=== PATIENT | female | born 1995 | race Caucasian/White ===

== ENCOUNTER 2019-06-21 21:36 | Emergency (ER) | payer MEDICAID ==
[2019-06-21] MEDS ORDERED: NORMAL SALINE 1000 ML 1,000 ML IV ONE (22:20)
--- NOTE | 2019-06-21 22:22 | ER Document Report ---
ED Medical Screen (RME) - General Chief Complaint: Fall Stated Complaint: FALL/HEAD IN JURY Time Seen by Provider: 06/21/19 22:15 Notes: Patient is a 24-year-old female who is currently 23 weeks who presents emergency department with a chief complaint of fall. Patient reports she was resting on the couch when she attempted to get up and felt lightheaded. Patient reports she did fall striking the left side of the forehead on a kitchen table. Patient states she did not lose consciousness. Patient reports prior to the fall she was feeling her baby move very frequently but has not felt the baby move much. She reports that labor and delivery early briefly did obtain heart tones but sent her to the emergency department for further evaluation. Patient reports having a headache and feeling like she has not had enough water to drink. Patient reports she could feel dehydrated. Patient did get Tylenol in the ambulance. Patient denies abdominal pain, vaginal bleeding or discharge. Patient does report urinary frequency but states this could be due to the . TRAVEL OUTSIDE OF THE [place] IN LAST 30 DAYS: No - Related Data Home Medications: Vitamins Past Medical History - Social History Frequency of alcohol use: None Drug Abuse: None Physical Exam - Vital signs Vitals: Temp Pulse Resp BP Pulse Ox 98.1 F 85 17 117/62 98 06/21/19 22:07 06/21/19 22:07 06/21/19 22:07 06/21/19 22:07 06/21/19 22:07 - HEENT Head: Normocephalic, Other - Very light petechiae noted to the top left head. No laceration, mild edema. Eyes: Normal Conjunctiva: Normal Cornea: Normal Eyelashes: Normal Pupils: PERRL Course - Re-evaluation Re-evalutation: 06/21/19 22:22 I have greeted and performed a rapid initial assessment of this patient. A comprehensive ED assessment and evaluation of the patient, analysis of test results and completion of the medical decision making process will be conducted by additional ED providers. - Vital Signs Vital signs: Temp Pulse Resp BP Pulse Ox 98.1 F 85 17 117/62 98 06/21/19 22:07 06/21/19 22:07 06/21/19 22:07 06/21/19 22:07 06/21/19 22:07
[2019-06-21 23:25] LABS: ABSOLUTE EOSINOPHILS # (AUTO) 0.1 10^3/uL (0.0-0.6); ABSOLUTE LYMPHOCYTES (AUTO) 2.7 10^3/uL (0.5-4.7); ABSOLUTE MONOCYTES (AUTO) 0.5 10^3/uL (0.1-1.4); ABSOLUTE NEUT (AUTO) 6.8 10^3/uL (1.7-8.2); BASOPHILS % (AUTO) 0.4 % (0-2); EOSINOPHILS % (AUTO) 0.9 % (0-6); HEMATOCRIT 37.5 % (36.0-47.0); HEMOGLOBIN 13.6 g/dL (12.0-15.5); LYMPHOCYTES % (AUTO) 26.4 % (13-45); MEAN CORPUSCULAR HEMOGLOBIN 31.6 pg (27.0-33.4); MEAN CORPUSCULAR HGB CONC 36.2 g/dL (32.0-36.0); MEAN CORPUSCULAR VOLUME 87 fl (80-97); MONOCYTES % (AUTO) 4.9 % (3-13); PLATELET COUNT 253 10^3/uL (150-450); RED CELL DISTRIBUTION WIDTH 13.8 % (11.5-14.0); SEGMENTED NEUTROPHILS % (AUTO) 67.4 % (42-78); TOTAL CELLS COUNTED % (AUTO) 100 %; WHITE BLOOD COUNT 10.1 10^3/uL (4.0-10.5)
[2019-06-21 23:36] LABS: APPEARANCE,URINE CLOUDY; BILIRUBIN,URINE NEGATIVE (NEGATIVE); CALCIUM OXALATE CRYSTALS,URINE TOO NUMEROUS TO CNT /HPF; COLOR,URINE YELLOW; GLUCOSE, URINE NEGATIVE (NEGATIVE); KETONES,URINE NEGATIVE (NEGATIVE); LEUKOCYTE ESTERASE,URINE SMALL (NEGATIVE); NITRITE,URINE NEGATIVE (NEGATIVE); PROTEIN,URINE NEGATIVE (NEGATIVE); URINE SPECIFIC GRAVITY 1.021
[2019-06-21 23:41] LABS: ALBUMIN 3.7 g/dL (3.5-5.0); ALKALINE PHOSPHATASE 51 U/L (38-126); ANION GAP 9 (5-19); ASPARTATE AMINO TRANSFERASE 23 U/L (14-36); BILIRUBIN,DIRECT 0.3 mg/dL (0.0-0.4); BILIRUBIN,TOTAL 0.5 mg/dL (0.2-1.3); BLOOD UREA NITROGEN 7 mg/dL (7-20); CALCIUM 9.3 mg/dL (8.4-10.2); CARBON DIOXIDE 25 mmol/L (22-30); CHLORIDE 102 mmol/L (98-107); GLUCOSE 91 mg/dL (75-110); POTASSIUM 3.4 mmol/L (3.6-5.0); TOTAL PROTEIN 6.8 g/dL (6.3-8.2)
--- NOTE | 2019-06-22 01:46 | ER Document Report ---
ED General - General Chief Complaint: Fall Stated Complaint: FALL/HEAD IN JURY Time Seen by Provider: 06/21/19 22:15 Mode of Arrival: Medic Information source: Patient Notes: Patient is a 24-year-old female presenting to the emergency department chief complaint of accidental fall while . Patient states that about 7 PM this evening she stood up became lightheaded and fell hitting her head on a table. Patient denies actual loss of consciousness. Patient states that she has experienced decreased movement since the incident. Patient states she is approximately 23 weeks gestation 2 para 1 A0. At the time of evaluation patient is alert and oriented x3 in no acute distress. TRAVEL OUTSIDE OF THE [place] IN LAST 30 DAYS: No - HPI Onset: This evening Onset/Duration: Sudden, Better Quality of pain: Achy Severity: Moderate Pain Level: 2 Associated symptoms: None Exacerbated by: Denies Relieved by: Denies Similar symptoms previously: No Recently seen / treated by doctor: No - Related Data Allergies/Adverse Reactions: No Known Allergies Allergy (Unverified 06/21/19 22:21) Home Medications: Vitamins Past Medical History - General Information source: Patient - Social History Smoking Status: Never Smoker Frequency of alcohol use: None Drug Abuse: None Lives with: Spouse/Significant other Family History: Reviewed & Not Pertinent Patient has suicidal ideation: No Patient has homicidal ideation: No - Medical History Medical History: Negative Past Surgical History: Reports: Hx Oral Surgery - wisdom teeth Review of Systems - Review of Systems Notes: REVIEW OF SYSTEMS: CONSTITUTIONAL : Denies fever, chills, or sweats. Denies recent illness. EENT: Denies eye, ear, throat, or mouth pain or symptoms. Denies nasal or sinus congestion. CARDIOVASCULAR: Denies chest pain. RESPIRATORY: Denies cough, cold, or chest congestion. Denies shortness of breath, difficulty breathing, or wheezing. GASTROINTESTINAL: Denies abdominal pain. Denies nausea, vomiting, or diarrhea. Denies constipation. GENITOURINARY: Denies difficulty urinating, painful urination, burning, frequency, or blood in urine. OB: Decreased movement MUSCULOSKELETAL: Denies neck or back pain or joint pain or swelling. SKIN: Denies rash or skin lesions. HEMATOLOGIC : Denies easy bruising or bleeding. NEUROLOGICAL: Denies altered mental status or loss of consciousness. Denies headache. Denies weakness or paralysis or loss of use of either side. Denies problems with gait or speech. Denies sensory or motor loss. 10 Systems are negative unless otherwise specified above Physical Exam - Vital signs Vitals: Temp Pulse Resp BP Pulse Ox 98.1 F 85 17 117/62 98 06/21/19 22:07 06/21/19 22:07 06/21/19 22:07 06/21/19 22:07 06/21/19 22:07 Interpretation: Normal - General General appearance: Appears well, Alert In distress: None - HEENT Head: Normocephalic, Atraumatic Eyes: Normal Pupils: PERRL - Respiratory Respiratory status: No respiratory distress Chest status: Nontender Breath sounds: Normal Chest palpation: Normal - Cardiovascular Rhythm: Regular Heart sounds: Normal auscultation Murmur: No - Abdominal Inspection: Gravid female Bowel sounds: Normal Tenderness: Tender - Back Back: Normal, Nontender - Extremities General upper extremity: Normal inspection, Nontender, Normal color, Normal ROM, Normal temperature General lower extremity: Normal inspection, Nontender, Normal color, Normal ROM, Normal temperature, Normal weight bearing. No: Bipin's sign - Neurological Notes: At time of evaluation the patient is alert and oriented x3, Glascow coma scale of 15, cranial nerves II through XII are grossly intact, sensations intact, motor is intact, there are no signs of nystagmus, there is no pronator drift, there is no facial asymmetry, tongue protrusion is midline, reflexes are equal and bilateral, patient ambulates without ataxia, patient answers all questions appropriately follows commands appropriately. - Skin Skin Temperature: Warm Skin Moisture: Dry Skin Color: Normal Skin Turgor: Elastic Course - Re-evaluation Re-evalutation: 06/22/19 01:46 Labs have been reviewed I spoke with [facility] on-call they are requesting ultrasound of the abdomen to ensure no pathologic abnormalities. 06/22/19 02:20 Patient to US 06/22/19 02:42 Patient has returned from ultrasound. Patient continues to have no complaints. Waiting on official ultrasound read by radiologist. 06/22/19 02:54 Ultrasound determined no significant findings. Single living IUP of 23 weeks 5 days, heart rate of 145. I have discussed the laboratory and radiologic results with patient and family member they are agreeable with discharge home patient is to follow-up this coming Monday for further discussion with [facility] as needed or return to the emergency department for worsening symptoms. Patient is stable at time of disc harge. - Vital Signs Vital signs: Temp Pulse Resp BP Pulse Ox 98.1 F 85 17 117/62 98 06/21/19 22:07 06/21/19 22:07 06/21/19 22:07 06/21/19 22:07 06/21/19 22:07 - Laboratory Result Diagrams: 06/21/19 23:08 06/21/19 23:08 Laboratory results interpreted by me: 06/21/19 06/21/19 06/21/19 23:08 23:08 23:08 MCHC 36.2 H Sodium 136.2 L Potassium 3.4 L Creatinine 0.47 L Urine Urobilinogen 2.0 H Ur Leukocyte Esterase SMALL H Discharge - Discharge Clinical Impression: Accidental fall, Abdominal contusion Condition: Stable Disposition: HOME, SELF-CARE Additional Instructions: Recommend following up with your [facility] physician this coming week. Return to the emergency department for worsening symptoms to include vaginal bleeding or spotting, abdominal pain out of any norm for cramping. Also recommend returning to the emergency department for any mental status changes blurred vision or headache that does not respond to Tylenol. Also recommend taking time when changing positions from lying to sitting sitting to standing. Please increase your hydration.
--- NOTE | 2019-06-22 02:51 | RADIOLOGY REPORT (SQ) ---
EXAM DESCRIPTION: US LIMITED COMPLETED DATE/TME: 06/22/2019 01:39 CLINICAL HISTORY: 24 years Female, fall -- decreased mvt 23w5d Comparison: None. TECHNIQUE/LIMITATION: Targeted OB sonogram for requested parameters only. FINDINGS: Single IUP Cardiac activity: 145-bpm. KELLY: 17.7-cm Placenta: Anterior. No demonstrated abruption or previa. (Please note: Ultrasound does not detect most cases of abruption and "placental abruption" is considered a clinical diagnosis.) Presentation: Vertex. Cervical length: 3.4-cm. Closed appearance. Other: possible posterior myometrial contraction. IMPRESSION: Targeted OB sonogram for requested parameters
[2019-06-22 03:21] VITALS: BP 121/63
== END 2019-06-22 03:26 | disposition home or self-care (01) ==
LOC: ER 21:36
DX: O9A.212 Injury, poisoning and certain other consequences of external causes complicating pregnancy, second trimester (principal); S30.1XXA Contusion of abdominal wall, initial encounter; W18.39XA Other fall on same level, initial encounter; W22.03XA Walked into furniture, initial encounter; O36.8120 Decreased fetal movements, second trimester, not applicable or unspecified; O26.892 Other specified pregnancy related conditions, second trimester; R42 Dizziness and giddiness; Z3A.23 23 weeks gestation of pregnancy; Z79.899 Other long term (current) drug therapy
CPT/HCPCS: 99284; 96360; 36415; 85025; 80053; 81001; 76815; J7030

== ENCOUNTER 2019-07-19 01:18 | Emergency (ER) | payer MEDICAID ==
--- NOTE | 2019-07-19 07:13 | ER Document Report ---
Entered by JOEY HEARN SCRIBE 07/19/19 0654 Acting as scribe for:JOANA LOONEY MD ED General - General Chief Complaint: Cold Exposure Stated Complaint: COLD Time Seen by Provider: 07/19/19 06:46 Information source: Patient, Emergency Med Personnel, [facility] Records Notes: 24-year-old female who is 7 months presents to the emergency department with cold exposure last night. Patient explains that she was at the bar and had no ride home so she started walking to [place]. Patient reports that her phone and she was unable to find a ride. Patient explains that after " knocking on people's door" she was able to find a phone and call 911. Patient came to the emergency department to get her "baby checked". Patient reports muscle pain. TRAVEL OUTSIDE OF THE [place] IN LAST 30 DAYS: No - Related Data Allergies/Adverse Reactions: No Known Allergies Allergy (Unverified 06/21/19 22:21) Home Medications: Past Medical History - General Information source: Patient, Emergency Med Personnel, [facility] Records - Social History Smoking Status: Never Smoker Cigarette use (# per day): No Chew tobacco use (# tins/day): No Frequency of alcohol use: None Drug Abuse: None Occupation: Unemployed Lives with: Homeless Family History: Reviewed & Not Pertinent Patient has suicidal ideation: No Patient has homicidal ideation: No - Medical History Medical History: Negative Past Surgical History: Reports: Hx Oral Surgery - wisdom teeth Review of Systems - Review of Systems Constitutional: No symptoms reported EENT: No symptoms reported Cardiovascular: No symptoms reported Respiratory: No symptoms reported Gastrointestinal: No symptoms reported Genitourinary: No symptoms reported Female Genitourinary: See HPI - 7 months, Musculoskeletal: See HPI, Muscle pain Skin: No symptoms reported Hematologic/Lymphatic: No symptoms reported Neurological/Psychological: No symptoms reported -: Yes All other systems reviewed and negative Physical Exam - Vital signs Vitals: Temp Pulse Resp BP Pulse Ox 98.1 F 91 18 119/66 98 07/19/19 01:54 07/19/19 01:54 07/19/19 01:54 07/19/19 01:54 07/19/19 01:54 - Notes Notes: Physical Exam: General: Alert, appears well. HEENT: Normocephalic. Atraumatic. PERRL. Extraocular movements intact. Oropharynx clear. Neck: Supple. Non-tender. Respiratory: No respiratory distress. Clear and equal breath sounds bilaterally. Cardiovascular: Regular rate and rhythm. Abdominal: Normal Inspection. Non-tender. No distension. Normal Bowel Sounds. Gravid. The nurse checked the heart tones with the Doppler and get a rate of 150. Back: No gross abnormalities. Extremities: Moves all four extremities. Upper extremities: Normal inspection. Normal ROM. Lower extremities: Normal inspection. No edema. Normal ROM. Neurological: Normal cognition. AAOx4. Normal speech. Psychological: Normal affect. Normal Mood. Skin: Warm. Dry. Normal color. Course - Re-evaluation Re-evalutation: 07/19/19 07:34 heart tones checked by the nurse are 150. - Vital Signs Vital signs: Temp Pulse Resp BP Pulse Ox 97.8 F 89 16 99/40 L 99 07/19/19 07:46 07/19/19 07:46 07/19/19 07:46 07/19/19 07:46 07/19/19 07:46 Discharge - Discharge Clinical Impression: with 27 completed weeks gestation Exposure to environmental cold Qualifiers: Encounter type: initial encounter Qualified Code(s): T69.9XXA - Effect of reduced temperature, unspecified, initial encounter Disposition: HOME, SELF-CARE Additional Instructions: heart tones check shows the baby's heart rate at 150, this is normal. You should drink plenty of fluids and get plenty of rest today. Follow-up with a local [facility] doctor if any problems. RETURN TO THE EMERGENCY ROOM IF ANY NEW OR WORSENING SYMPTOMS. I personally performed the services described in the documentation, reviewed and edited the documentation which was dictated to the scribe in my presence, and it accurately records my words and actions.
[2019-07-19 07:47] VITALS: BP 99/40
== END 2019-07-19 07:46 | disposition home or self-care (01) ==
LOC: ER 01:18
DX: O26.892 Other specified pregnancy related conditions, second trimester (principal); T69.9XXA Effect of reduced temperature, unspecified, initial encounter; X31.XXXA Exposure to excessive natural cold, initial encounter; Z3A.27 27 weeks gestation of pregnancy
CPT/HCPCS: 99283